=== PATIENT | female | born 1975 | race Caucasian/White ===

== ENCOUNTER → 2021-08-02 15:51 | Outpatient (CLI) | payer OTHER, SELFPAY ==
--- NOTE | ~2021-08-02 | MM_ITS ---
EXAMINATION: MM screening kaia BI w amador HISTORY: Screening TECHNIQUE: Craniocaudal and mediolateral oblique 3-D tomosynthesis images were obtained and synthetic 2-D images were generated. CAD analysis was submitted and interpreted. COMPARISON: No prior mammogram is available for comparison at this institution. BREAST PARENCHYMAL COMPOSITION: The breasts are heterogeneously dense, which may obscure small masses . FINDINGS: There is possible architectural distortion in the upper outer quadrant of the right breast. There are asymmetries scattered throughout the left breast. IMPRESSION: 1. Bilateral breast asymmetries with possible architectural distortion outer aspect of the right jonas st on CC view. 2. Additional mammographic views and possible breast ultrasound are recommended. BI-RADS Category 0: Incomplete: Needs additional imaging evaluation. Reviewed, dictated and finalized at location A. IMPRESSION: 1. Bilateral breast asymmetries with possible architectural distortion outer as pect of the right breast on CC view. 2. Additional mammographic views and possible breast ultrasound are recommended . BI-RADS Category 0: Incomplete: Needs additional imaging evaluation.
== END ==
PROVIDERS: PCP Family Medicine; Visit Provider Physician Assistant
DX: Z12.31 Encounter for screening mammogram for malignant neoplasm of breast (principal); R92.8 Other abnormal and inconclusive findings on diagnostic imaging of breast
CPT/HCPCS: 77063; 77067

== ENCOUNTER 2021-08-21 13:14 | Outpatient (CLI) | payer OTHER, SELFPAY ==
--- NOTE | ~2021-08-21 | MMUS_ITS ---
EXAMINATION: MM diagnostic kaia BI w amador, US breast BI complete HISTORY: Follow-up bilateral breast asymmetries TECHNIQUE: Additional 3-D tomosynthesis images of the breasts were performed and synthetic 2-D images were generated. CAD analysis was submitted and interpreted. High resolution bilateral whole breast u ltrasound was performed. COMPARISON: Comparison to multiple prior studies sequentially, with oldest reviewed study dated 12/27. BREAST PARENCHYMAL COMPOSITION: The breasts are heterogenously dense, which may obscure small masses. FINDINGS: MAMMOGRAPHIC FINDINGS: Asymmetry in the upper outer quadrant of the right breast is less dense with spot compression views, likely superimposed fibroglandular tissue. No discrete mass or suspicious cluster of calcifications i s identified. There are persistent asymmetries in the upper outer quadrant of the left breast with a focal mass in the lower inner quadrant of the left breast, middle third. ULTRASOUND: Complete right breast ultrasound there are multiple cysts of the right breast, largest measuring 5 mm . At 10:00, 5 cm from the nipple, there is a hypoechoic mass with oval configuration, parallel orient ation, no posterior features and no internal vascularity. There is an eccentric hyperechoic area with in this cyst which measures 9 mm maximum dimension. This may represent a benign complicated cyst or i ntramammary lymph node most likely. Complete left breast ultrasound: Multiple cysts, largest at 4:00, 6 cm from the nipple measuring 1.9 cm greatest dimension. At 2:00, 7 cm from the nipple there is a heterogeneous predominantly hypoechoi c mass with mixed posterior attenuation, no significant posterior features measuring 2.2 x 2 x 1 cm. At 9:00, 8 cm from the nipple, there is a similar-appearing heterogeneous hypoechoic mass with parall el orientation, no internal vascularity, mixed posterior attenuation measuring 11 x 7 x 12 mm. IMPRESSION: 1. Multiple abnormal masses of the left breast at 2:00, 7 cm from the nipple and 9:00, 8 cm from the nipple. Ultrasound-guided biopsy is recommended. BI-RADS CATEGORY 4-SUSPICIOUS ABNORMALITY . 2. Probable benign right breast mass at 10:00, 5 cm from the nipple. Six-month follow-up right breast ultrasound recommended. BI-RADS CATEGORY 3-PROBABLY BENIGN FINDING. Reviewed, dictated and finalized at location A. IMPRESSION: 1. Multiple abnormal masses of the left breast at 2:00, 7 cm from the nipple an d 9:00, 8 cm from the nipple. Ultrasound-guided biopsy is recommended. BI-RADS CATEGORY 4-SUSPICIOUS ABNORMALITY . 2. Probable benign right breast mass at 10:00, 5 cm from the nipple. Six-month follow-up right breast ultrasound recommended. BI-RADS CATEGORY 3-PROBABLY FERNY GN FINDING.
== END 2021-08-21 13:15 | disposition home or self-care (01) ==
LOC: ANHIMG 13:17
PROVIDERS: PCP Family Medicine; Visit Provider Family Medicine
DX: R92.8 Other abnormal and inconclusive findings on diagnostic imaging of breast (principal)
CPT/HCPCS: 76641; 77062; 77066; G0279

== ENCOUNTER 2021-11-26 11:12 | Emergency (ER) | payer OTHER, SELFPAY ==
[2021-11-26 11:21] VITALS: BP 138/84; PULSE 103; RESP 16; TEMP 37.1; O2SAT 100
--- NOTE | 2021-11-26 11:22 | ED.EAR ---
HPI - Ear Problem General Chief complaint: Ear Stated complaint: Ear pain Time Seen by Provider: 11/26/21 11:22 Source: patient and RN notes reviewed History of Present Illness HPI Narrative: Patient is a 46-year-old female presents the urgent care with complaints of left ear discomfort. Patient states that she was using eardrops for the last 7 days which seem to improved her symptoms. However states that last night she felt a pop in her left ear with sudden pain and drainage overnight. Patient states that she noticed bloody drainage and now has muffled hearing and feels like she is talking underwater . Patient currently denies any fever, chills, nausea, vomiting. States that she has chronic sinus issues. No other acute complaints. Patient has been taking Flonase, daily antihistamine and Tylenol. Patient aware of the plan of care. Some parts of this dictation were generated by voice recognition software and may contain typographical and/or grammatical inaccuracies. Related Data Allergies Allergy/AdvReac Type Severity Reaction Status Date / Time No Known Allergies Allergy Verified 11/26/21 11:23 Review of Systems Review of Systems: CONSTITUTIONAL: Denies fever, chills, or sweats. EYES: Denies visual changes, redness, or discharge. ENT: Denies rhinorrhea, congestion, sore throat. Reports of left otalgia and muffled hearing CARDIOVASCULAR: Denies chest pain, palpitations, or edema. RESPIRATORY: Denies cough or dyspnea. GASTROINTESTINAL: Denies abdominal pain, nausea, vomiting, or diarrhea. GENITOURINARY: Denies dysuria or hematuria. SKIN: Denies rash or itching. MUSCULOSKELETAL: Denies back pain, joint pain, or myalgia. NEUROLOGIC: Denies headache, numbness, or weakness. All other systems reviewed are negative, except as documented in HPI. [facility] Past Medical History Medical History Anxiety Essential hypertension Hyperlipidemia Non-seasonal allergic rhinitis Family History Family History Other Diabetes mellitus Family history of cardiovascular disease Social History Social History Tobacco type: cigarettes Second hand tobacco smoke exposure: Yes Smoking end date: 10/20/11 Alcohol intake: current Drinks per week: 6 Substance use: never Substance use type: does not use Comments At the time of my signature, I reviewed and agree with the nursing past medical, surgical, social, and family history. There is no relevant family history pertinent to the patient complaint. Exam Narrative: GENERAL: This is a well-nourished, well-developed patient, in no apparent distress. HEAD: normocephalic, atraumatic. EYES: PERRL. Sclera clear/white. Vision is grossly intact. EARS: External ears normal, right auditory canal clear and without drainage, right TMs normal without perforation. Scant bloody drainage noted to the left auditory canal without edema or erythema. Large effusion with perforation to the left TM without surrounding erythema. NOSE: External nose normal with no obvious nasal discharge, nares without redness, no rhinorrhea. THROAT: Mucous membranes moist NECK: Neck supple RESPIRATORY: Clear to auscultation. Breath sounds equal bilaterally. No wheezes, rales, or rhonchi. SKIN: warm, intact with no suspicious lesions or rash, good texture and turgor. NEURO: awake, alert, and oriented to person, place and time. There were no obvious focal neurologic abnormalities. EXTREMITIES: No clubbing, cyanosis, or edema. Course Course Level of Care: Express Care Visit Vital Signs Vital signs: Vital Signs Temperature 98.8 F 11/26/21 11:21 Pulse Rate 103 H 11/26/21 11:21 Respiratory Rate 16 11/26/21 11:21 Blood Pressure 138/84 11/26/21 11:21 Pulse Oximetry 100 11/26/21 11:21 Temperature 98.8 F 11/26/21 11:21 Puls
== END 2021-11-26 12:02 | disposition home or self-care (01) ==
PROVIDERS: Emergency Provider Nurse Practitioner Family; PCP Family Medicine
DX: H72.92 Unspecified perforation of tympanic membrane, left ear (principal); Z87.891 Personal history of nicotine dependence; I10 Essential (primary) hypertension; E78.5 Hyperlipidemia, unspecified; F41.9 Anxiety disorder, unspecified
CPT/HCPCS: 99211; G0463

== ENCOUNTER → 2023-01-16 11:21 | Outpatient (CLI) | payer OTHER, SELFPAY ==
--- NOTE | ~2023-01-16 | XR_ITS ---
AP and lateral views of the left hip Clinical history: Pain Findings: No acute fracture or dislocation is seen. Osseous alignment is anatomic. The left hip joint and visualized left SI joint are preserved. Soft tissues are unremarkable. Impression: No significant abnormality is seen. Reviewed, dictated and finalized at [facility]. Impression: No significant abnormality is seen.
--- NOTE | ~2023-01-16 | XR_ITS ---
AP and lateral views of the left femur Clinical History: Pain Findings: No acute fracture or dislocation is seen. Osseous alignment is anatomic. Visualized joint s paces are grossly preserved. Soft tissues are unremarkable. Impression: Unremarkable left femoral radiographs. Reviewed, dictated and finalized at location M. Impression: Unremarkable left femoral radiographs.
== END ==
PROVIDERS: PCP Family Medicine; Visit Provider Physician Assistant Medical
DX: M79.605 Pain in left leg (principal)
CPT/HCPCS: 73502; 73552

== ENCOUNTER 2023-03-10 10:34 | Outpatient (CLI) | payer OTHER, SELFPAY ==
--- NOTE | ~2023-03-10 | MR_ITS ---
EXAMINATION: MR knee LT wo con DATE: 03/10/2023 11:26 INDICATION: Left knee pain and swelling post injury with palpable pop. TECHNIQUE: Magnetic resonance imaging (MRI) of the left knee was performed without intravenous contra st. Sequences included coronal PD-weighted FSE, coronal PD-weighted FS FSE, sagittal T2-weighted FSE , sagittal PD-weighted FS FSE and axial PD weighted fat saturated FSE. COMPARISON: None. FINDINGS: Medial compartment: Medial meniscus is normal. Articular cartilage is normal. Lateral compartment: Lateral meniscus is normal. Articular cartilage is normal. Patellofemoral compartment: Partial-thickness chondral ulceration and deep fissuring with underlying subarticular edema-like sign al changes at the patellar apical ridge and immediately adjacent medial side of the lateral patellar facet. Trochlear cartilage is normal. Ligaments and tendons: Anterior and posterior cruciate ligaments are normal. The medial collateral ligament and fibular mckayla ateral ligament complex are normal. Moderate size enthesophyte at the patellar insertion of the dista l quadriceps tendon without significant associated tendinopathy. Patellar tendon is normal. The visua lized medial and lateral hamstring tendons as well as the iliotibial band are normal. Fluid: Physiologic amount of fluid in the joint space. No loose osteochondral bodies identified. Osseous/other: Couple low signal intensity bone islands at the lateral femoral condyle and anterolateral metaphyseal region of the distal left femur. No fracture or pathologic marrow replacing process. Mild edema at t he superficial suprapatellar fat pad be seen with fat pad impingement syndrome. IMPRESSION: 1. 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 2. Mild edema in the superficial suprapatellar fat pad consistent with fat pad impingement syndrome. 3. Normal menisci and stabilizing ligaments of the knee. Reviewed, dictated and finalized at location A.
== END 2023-03-10 10:35 | disposition home or self-care (01) ==
PROVIDERS: PCP Family Medicine; Visit Provider Orthopaedic Surgery
DX: S89.90XA Unspecified injury of unspecified lower leg, initial encounter (principal); X58.XXXA Exposure to other specified factors, initial encounter; M17.12 Unilateral primary osteoarthritis, left knee
CPT/HCPCS: 73721

== ENCOUNTER → 2023-08-12 12:52 | Outpatient (CLI) | payer OTHER, SELFPAY ==
--- NOTE | ~2023-08-12 | CT_ITS ---
EXAMINATION: CT IAC/mastoids BI wo con DATE: 08/12/2023 13:14 INDICATION: Disorder of left external ear, unspecified. TECHNIQUE: Computed tomography (CT) of the temporal bones was performed without intravenous contrast. Automated exposure control and iterative reconstruction technique were employed. The dose-length pro duct was 326.79 mGy-cm. COMPARISON: None FINDINGS: RIGHT TEMPORAL BONE: The internal auditory canal, cochlea, vestibule, vestibular aqueduct, and semicircular canals are nor mal. There is a high riding and dehiscent right jugular bulb. The carotid canal is normal. There is d ehiscence of tegmen tympani. The ossicles, Prussak space, scutum, mastoid air cells, and external aud itory canal are normal. There is severe temporomandibular joint osteoarthritis. LEFT TEMPORAL BONE: The internal auditory canal, cochlea, vestibule, semicircular canals, vestibular aqueduct, carotid ca nal, jugular bulb, and facial nerve course are normal. There is dehiscence of the tegmen tympani. The ossicles, Prussak space, scutum, tympanic membrane, and mastoid air cells are normal. There is sever e temporomandibular joint osteoarthritis. There is a 6 mm mass at the anterior wall of the external a uditory canal. IMPRESSION: 1. 6 mm mass at the anterior wall of left external auditory canal. This finding may be inflammation e xtending from the temporomandibular joint. Neoplasm is not excluded. Correlate with physical exam. 2. Severe osteoarthritis of the temporomandibular joints. Reviewed, dictated and finalized at location E. IMPRESSION: 1. 6 mm mass at the anterior wall of left external auditory canal. This finding may be inflammation extending from the temporomandibular joint. Neoplasm is no t excluded. Correlate with physical exam. 2. Severe osteoarthritis of the temporomandibular joints.
== END ==
PROVIDERS: PCP Family Medicine; Visit Provider Otolaryngology
DX: H61.92 Disorder of left external ear, unspecified (principal); M19.09 Primary osteoarthritis, other specified site
CPT/HCPCS: 70480